=== PATIENT | female | born 1950 | race Caucasian/White ===

== ENCOUNTER 2016-10-22 19:49 | Observation (INO) | payer OTHER ==
[~2016-10-22] VITALS: Ht 154.9 cm; Wt 94.8 kg
--- NOTE | ~2016-10-22 | HP ---
History And Physical [place] [id number] [facility] [place]. [address] NAME: GEOVANI PEÑA : 54 STATUS : ADM Daisy PAT#: [id number] AGE: 65 ADM/REG DATE : 10/22/16 MR#: [id number] REPORT SERV DATE: 10/24/16 DICTATED BY: MONICA RENAE DATE: 10/24/16 REPORT STATUS : Draft TRANSCRIBED BY: MODMeredith DATE: 10/24/16 DATE OF ADMISSION: 10/22/2016 CHIEF COMPLAINT: Left flank pain. HISTORY OF PRESENT ILLNESS: Ms. Peña is a 65-year-old female with a one-day history of left flank pain. She endorses fevers, chills, nausea, and vomiting. She presented to the emergency room and a CT scan was done. This demonstrated a 5 mm stone in her proximal left ureter. Her white count was elevated to 20,000, and her urinalysis was concerning for infection. Fortunately, she was not febrile and had no cardiovascular changes concerning for early sepsis. Nothing makes her pain better or worse. She has not been treated for kidney stones in the past or had a stent. I have been asked to admit the patient for management. PAST MEDICAL HISTORY: Kidney stones, obesity, and hypertension. PAST SURGICAL HISTORY: None. ALLERGIES: NO KNOWN DRUG ALLERGIES. MEDICATIONS: Reviewed and listed in the chart. FAMILY HISTORY: Noncontributory. SOCIAL HISTORY: She does not use illegal drugs. She has never smoked. She is not a drinker. REVIEW OF SYSTEMS: A 12-point review of systems was performed. Pertinent positives are listed in the HPI. PHYSICAL EXAMINATION: VITAL SIGNS: Temperature is 99.4, pulse is in the 90s, blood pressure is 90s over 50s, and sating 93% on room air. GENERAL: She is in no acute distress. She appears her stated age. HEENT: Her head is normocephalic and atraumatic. LUNGS: Breathing is nonlabored. She is not in respiratory distress. HEART: Her pulse is regular in rate and rhythm. ABDOMEN: Soft, nontender, nondistended. She has left CVA tenderness. She does not have right CVA tenderness. GENITOURINARY: She has normal external genitalia. EXTREMITIES: There is no cyanosis or edema. PSYCHIATRIC: She is alert and oriented x3. LABORATORY DATA: White count 19.2, hemoglobin 13.4. Creatinine 1.3. IMAGING: CT scan of the abdomen and pelvis was performed. I agree with the interpretation. History And Physical [address] [place]. [place]. [address] NAME: GEOVANI PEÑA : 54 STATUS : ADM Daisy PAT#: [id number] AGE: 65 ADM/REG DATE : 10/22/16 MR#: [id number] REPORT SERV DATE: 10/24/16 DICTATED BY: MONICA RENAE DATE: 10/24/16 REPORT STATUS : Draft TRANSCRIBED BY: MODL DATE: 10/24/16 Images were personally reviewed and interpreted by myself. She has a 5 mm left ureteral calculus. ASSESSMENT: 1. Left ureteral calculus. 2. Hydronephrosis. 3. Urinary tract infection. PLAN: I will plan on admitting Ms. Peña to my service. She will need to go to the operating room tomorrow for cystoscopy and stent placement. We will keep her on IV antibiotics and send blood and urine cultures. Clearly, she clinically decompensates overnight. We will place the stent sooner. SARITHA/CIARA Monica Renae MD / [id number] CC: MD Fish Ko MD
--- NOTE | ~2016-10-22 | OP ---
Record Of Operation [facility] [address] [place]. [address] NAME: GEOVANI PEÑA : 54 STATUS : ADM Daisy PAT#: [id number] AGE: 65 ADM/REG DATE : 10/22/16 MR#: [id number] REPORT SERV DATE: 10/24/16 DICTATED BY: MONICA SHAH DATE: 10/24/16 REPORT STATUS : Draft TRANSCRIBED BY: CIARA DATE: 10/24/16 DATE OF PROCEDURE: 10/23/2016 TITLE OF OPERATION: Cystourethroscopy, left retrograde pyelogram, placement of 6 x 26 left ureteral stent. PREOPERATIVE DIAGNOSES: 1. Left ureteral stone. 2. Urinary tract infection. POSTOPERATIVE DIAGNOSES: 1. Left ureteral stone. 2. Urinary tract infection. INDICATIONS: Ms. Peña is a 65-year-old female with a left ureteral stone. She has a white count of 20,000 and concern for infection. She is here for cystoscopy and stent placement. ANESTHESIA: General. COMPLICATIONS: None. IMPLANTS: 1. 6 x 26 left ureteral stent with no tether. 2. 16-Djiboutian Rucker catheter. SPECIMEN: Urine for culture. NARRATIVE: The patient was brought to the operating room, identified by wristband. General anesthesia was induced. She was given Rocephin for antibiotics. She was placed in the dorsal lithotomy position, and prepped and draped in sterile fashion. A 22-Djiboutian cystoscope was placed into her urethra and into her bladder. The bladder was inspected and it was normal. The left ureteral orifice was identified and cannulated with a Sensor wire. A gentle retrograde pyelogram was shot, which demonstrated moderate hydronephrosis. A wire was placed through the catheter into the kidney. A 6 x 26 ureteral stent was placed over the wire into the kidney. The proximal coil was in the upper pole and the distal coil was in the bladder. There was clearly purulent material draining from the kidney. This was sent for culture. The scope was removed. A 16-Djiboutian Rucker catheter was placed. The patient was awoken from anesthesia and transferred to the recovery room in stable condition. No complications. We will await on her culture results prior to sending her home on directed antibiotic therapy. SARITHA/CIARA Monica Amin Record Of Operation [address] [address] NAME: GEOVANI PEÑA : 54 STATUS : ADM Daisy PAT#: [id number] AGE: 65 ADM/REG DATE : 10/22/16 MR#: [id number] REPORT SERV DATE: 10/24/16 DICTATED BY: MONICA SHAH DATE: 10/24/16 REPORT STATUS : Draft TRANSCRIBED BY: MODL DATE: 10/24/16 MD Oc / [id number] CC: MD Fish Ko MD
--- NOTE | ~2016-10-22 | DS ---
Discharge Summary [facility] [address] [facility] [place]. [address] NAME: GEOVANI FAULKNER : 54 STATUS : DIS Daisy PAT#: [id number] AGE: 65 ADM/REG DATE : 10/22/16 MR#: [id number] REPORT SERV DATE: 10/28/16 DICTATED BY: MONICA RENAE DATE: 10/28/16 REPORT STATUS : Draft TRANSCRIBED BY: CIARA DATE: 10/28/16 Data Collection from hospitalization DISCHARGE DIAGNOSIS(ES): 1. Left ureteral stone. 2. Urinary tract infection. 3. Hypertension. 4. Obesity. CONSULTATIONS: None. PROCEDURES PERFORMED: 1. Cystourethroscopy, left retrograde pyelogram, and placement of 6 x 26 left ureteral stent, 10/23/2016. 2. CT scan of the abdomen and pelvis without contrast, 10/22/2016. MEDICATIONS: Wellbutrin XL 150 mg every morning, Cipro 500 mg every 12 hours, Colace 100 mg twice a day, Cymbalta 30 mg every morning, Mobic 15 mg every morning, Singulair 10 mg every morning, Aleve 440 mg daily as needed, Percocet 5/325 one to two tablets every four hours as needed, turmeric one tablet every morning as instructed, vitamin B12 one tablet every morning, Diovan 160 mg every morning. CONDITION AT DISCHARGE: Stable. DISPOSITION: The patient was discharged home on a regular diet with activities as instructed. She would follow up with me two weeks following discharge. HOSPITAL COURSE: This is a 65-year-old female who presented with a one-day history of left flank pain. She described having fevers, chills, nausea, and vomiting. She presented to the emergency room where a CT scan demonstrated a 5 mm stone in the proximal left ureter. Her white count was elevated at 20,000. Her urinalysis was concerning for infection. Fortunately, she was not febrile at this time and had no cardiovascular changes concerning for early sepsis. Nothing seemed to make her pain better or worse. She had not been treated for kidney stones in the past nor had a stent. Treatment options were discussed and it was elected to proceed with surgical intervention. She was admitted to the hospital at this time for further evaluation and treatment. Upon admission, she was found to have a urinary tract infection. IV antibiotics were then started. Blood and urine cultures had been obtained. She was taken to the operating room where she underwent the above-mentioned procedure. She tolerated this well. There were no complications. On postop day one, [place] [address], creatinine level was 1.2. IV fluids were stopped. The Rucker catheter was removed. She was placed on a regular diet. Her urine culture revealed E coli. Discharge planning was performed. On 10/25/2016, her vital signs were stable and she was afebrile. She was going to be on Cipro for two weeks. Discharge instructions were given. Due to her improved and stable condition, she was discharged home with the above-stated instructions. Information collected by: Cherri Stewart Discharge Summary [address] [address] NAME: GEOVANI FAULKNER : 54 STATUS : DIS Daisy PAT#: [id number] AGE: 65 ADM/REG DATE : 10/22/16 MR#: [id number] REPORT SERV DATE: 10/28/16 DICTATED BY: MONICA RENAE DATE: 10/28/16 REPORT STATUS : Draft TRANSCRIBED BY: CIARA DATE: 10/28/16 I submit the above information as my discharge summary. TG/CIARA Monica Renae MD / [id number] CC: MD Fish Ko MD
[2016-10-22 20:39] LABS: BASOPHILS 0.2 %; BASOPHILS ABSOLUTE 0.03 10/3/uL (0.0-0.16); EOSINOPHILS 0.2 %; EOSINOPHILS ABSOLUTE 0.03 10/3/uL (0.0-0.53); ER CBC TAT 0 Hrs 07 Mins; HEMATOCRIT 40.3 % (36.0-48.0); HEMOGLOBIN 13.4 g/dL (12.0-16.0); IMMATURE GRANULOCYTES 0.3 %; IMMATURE GRANULOCYTES ABSOLUTE 0.05 10/3/uL (0.0-0.11); LYMPHOCYTES 5.9 %; LYMPHOCYTES ABSOLUTE 1.13 10/3/uL (0.67-4.30); MEAN CORPUS HGB CONC 33.3 g/dL (32.0-36.0); MEAN CORPUSCULAR VOLUME 90.2 fL (80-100); MEAN PLATELET VOLUME 8.8 fL (9.2-13.0); MONOCYTES 1.7 %; MONOCYTES ABSOLUTE 0.33 10/3/uL (0.21-1.20); NEUTROPHILS 91.7 %; NEUTROPHILS ABSOLUTE 17.66 10/3/uL (2.02-8.40); PLATELET COUNT 474 10/3/uL (150-400); RBC DISTRIBUTION WIDTH 14.6 % (12.0-16.0); RED CELL COUNT 4.47 10/6/uL (4.0-5.6); WHITE BLOOD CELLS 19.2 10/3/uL (4.5-10.5)
[2016-10-22 20:42] LABS: MANUAL DIFF NO %
[2016-10-22 20:53] LABS: ALBUMIN 3.8 G/DL (3.5-5.0); ALKALINE PHOSPHATASE 84 U/L (45-117); BUN (BLOOD UREA NITROGEN) 32 MG/DL (6-23); CALCIUM, SERUM 9.5 MG/DL (8.5-10.4); CHLORIDE, SERUM 103 MMOL/L (96-112); CO2 (CARBON DIOXIDE) 28 MMOL/L (24-34); GFR AFRICAN AMERICAN 51 ML/MIN (>=60); GFR NON AFRICAN AMERICAN 44 ML/MIN (>=60); GLOBULIN 3.9 G/DL (2.5-4.1); GLUCOSE, SERUM 117 MG/DL (60-99); POTASSIUM, SERUM 4.5 MMOL/L (3.5-5.3); SGOT(AST) 21 U/L (5-40); SGPT(ALT) 24 U/L (5-65); SODIUM, SERUM 138 MMOL/L (135-148); TOTAL BILIRUBIN 0.5 MG/DL (0-1.2); TOTAL PROTEIN 7.7 G/DL (6.0-8.5)
[2016-10-22 22:09] LABS: ASCORBIC ACID (UR NOT ORDER) NEG (NEG); BILIRUBIN, URINE NEGATIVE (NEG); ER URINALYSIS TAT 0 Hrs 24 Mins; KETONE, URINE NEGATIVE (NEG); LEUKOCYTE ESTERASE(NOT OR LARGE (NEG); NITRITE (URINE) NEG (NEG); WBC (NOT ORDERED) (RFLEX) > 182 (0-5)
[2016-10-23] MEDS ORDERED: SINGULAIR1 PO (00:13)
[2016-10-23] MEDS ORDERED: MOBIC15 MG PO (00:13)
[2016-10-23] MEDS ORDERED: WELLXL150 PO (00:13)
[2016-10-23] MEDS ORDERED: DIOV160 PO (00:14)
[2016-10-23] MEDS ORDERED: CYMBALTA30 PO (00:14)
[2016-10-23] MEDS ORDERED: TUMERIC PO (00:14)
[2016-10-23] MEDS ORDERED: VITAMIN B-12 OTC PO (00:15)
[2016-10-23] MEDS ORDERED: ALEVE220 MG PO (00:15)
[2016-10-23 06:04] LABS: BUN (BLOOD UREA NITROGEN) 31 MG/DL (6-23); CALCIUM, SERUM 8.9 MG/DL (8.5-10.4); CHLORIDE, SERUM 104 MMOL/L (96-112); CO2 (CARBON DIOXIDE) 23 MMOL/L (24-34); CREATININE 1.29 MG/DL (0.55-1.02); GFR AFRICAN AMERICAN 51 ML/MIN (>=60); GFR NON AFRICAN AMERICAN 44 ML/MIN (>=60); GLUCOSE, SERUM 96 MG/DL (60-99); POTASSIUM, SERUM 4.3 MMOL/L (3.5-5.3); SODIUM, SERUM 137 MMOL/L (135-148)
[2016-10-23 06:09] LABS: BASOPHILS 0.1 %; BASOPHILS ABSOLUTE 0.02 10/3/uL (0.0-0.16); EOSINOPHILS 0.1 %; EOSINOPHILS ABSOLUTE 0.01 10/3/uL (0.0-0.53); HEMOGLOBIN 12.1 g/dL (12.0-16.0); IMMATURE GRANULOCYTES 0.3 %; IMMATURE GRANULOCYTES ABSOLUTE 0.06 10/3/uL (0.0-0.11); LYMPHOCYTES 2.8 %; LYMPHOCYTES ABSOLUTE 0.52 10/3/uL (0.67-4.30); MEAN CORPUS HGB CONC 33.5 g/dL (32.0-36.0); MEAN CORPUSCULAR HEMOGLOB 29.7 pg (26.0-34.0); MEAN CORPUSCULAR VOLUME 88.7 fL (80-100); MEAN PLATELET VOLUME 9.3 fL (9.2-13.0); MONOCYTES 2.1 %; NEUTROPHILS 94.6 %; PLATELET COUNT 383 10/3/uL (150-400); RED CELL COUNT 4.07 10/6/uL (4.0-5.6); WHITE BLOOD CELLS 18.6 10/3/uL (4.5-10.5)
[2016-10-23 06:10] LABS: HEMATOCRIT 36.1 % (36.0-48.0); MANUAL DIFF NO %
[2016-10-25] MEDS ORDERED: PCET PO (10:07)
[2016-10-25] MEDS ORDERED: DSS PO (10:07)
[2016-10-25] MEDS ORDERED: CIP5 PO (10:08)
== END 2016-10-25 10:58 | disposition home or self-care (01) ==
LOC: ER 19:49 → 4SO 23:23
PROVIDERS: Hospitalist
PROC: 0T778DZ Dilation of Left Ureter with Intraluminal Device, Via Natural or Artificial Opening Endoscopic (ICD-10-PCS; principal; 2016-10-22)
PROC: BT1FYZZ Fluoroscopy of Left Kidney, Ureter and Bladder using Other Contrast (ICD-10-PCS; 2016-10-22)
DX: N13.2 Hydronephrosis with renal and ureteral calculous obstruction (principal); N39.0 Urinary tract infection, site not specified; E66.9 Obesity, unspecified; I10 Essential (primary) hypertension; Z98.890 Other specified postprocedural states; Z79.899 Other long term (current) drug therapy; Z68.39 Body mass index [BMI] 39.0-39.9, adult
CPT/HCPCS: 74000; 74176; 74420; 80048; 80053; 81001; 83690; 85025; 87040; 87077; 87086; 87150; 87186; 96374; 96375; 96376; 99284; A9270-GY; C1758; C2617; G0378; J2250; J2370; J2405; J3010; Q9967